=== PATIENT | female | born 1975 | race Caucasian/White ===

== ENCOUNTER 2021-06-09 13:03 | Emergency (ER) | payer OTHER, SELFPAY ==
[2021-06-09 13:19] VITALS: BP 143/67; PULSE 85; RESP 18; TEMP 37.2; O2SAT 100
--- NOTE | 2021-06-09 13:46 | ED.GENADULT ---
HPI - General Adult General Chief complaint: Upper Respiratory Infection Stated complaint: Sore Throat Source: patient Mode of arrival: ambulatory Limitations: no limitations History of Present Illness HPI narrative: Patient is a 46-year-old female presents to express care via POV for evaluation of a sore throat that began yesterday. Additionally, patient reports throat pain is intermittent and sore in nature. Unable to rate pain on numerical scale. No relief with advil. Cool drinks alleviate pain and pain worsens with swallow. Of note, pt is on morphine for chronic pain and throat pain is not alleviated with this medication either. She admits that she is a tobacco smoker. Related Data Home Medications Medication Instructions Recorded Confirmed lamotrigine 150 mg PO DAILY 06/09/21 06/09/21 levothyroxine 50 mcg PO DAILY 06/09/21 06/09/21 lisdexamfetamine [Vyvanse] 40 mg PO DAILY 06/09/21 06/09/21 morphine 60 mg PO DAILY 06/09/21 06/09/21 progesterone micronized 200 mg PO DAILY 06/09/21 06/09/21 tapentadol [Nucynta] 50 mg PO DAILY 06/09/21 06/09/21 thyroid (pork) [[place] Thyroid] 120 mg PO DAILY 06/09/21 06/09/21 Allergies Allergy/AdvReac Type Severity Reaction Status Date / Time No Known Allergies Allergy Verified 06/09/21 14:47 Review of Systems Review of Systems: Narrative: Denies history of COPD, bronchitis, asthma, and pneumonia. Denies fever, sweats, chills, change in appetite, fatigue, skin color changes, headache, nasal congestion/discharge, dizziness, lymphadenopathy, sinus problems, ear pain/drainage, chest pain, heart murmurs, heart palpitations, shortness of breath, wheezing, cyanosis, hemoptysis, hoarseness, orthopnea, pleuritic pain, nausea, vomiting, diarrhea, and myalgias. [facility] Past Medical History Medical History Anxiety Chronic pain Depression Hypothyroidism MTHFR (methylene THF reductase) deficiency and homocystinuria Social History Social History Gender identity (if verbalized by the patient): Female Comments I have reviewed and agree with the patient's past medical, surgical, social, and family hx as documented by the RN. There is no relevant family history pertinent to the presenting complaint. Exam Narrative: Exam Narrative: GENERAL: Well-appearing, well-nourished, and in no acute distress. HEAD: Normocephalic, atraumatic. No sinus tenderness or facial swelling appreciated. EYES: PERRLA and EOMI. No evidence of erythema, swelling, or drainage. ENT: Bilateral external ears and ear canals normal. Bilateral TMs are normal.No TM perforation. Nares clear, no rhinorrhea or epistaxis. Bilateral turbinates without erythema/ swelling. Mucous membranes moist and pink. Uvula is midline without erythema and swelling. MILD ERYTHEMA IS NOTED TO POSTERIOR PHARYNX. No evidence of petechial rash, cobblestoning, lesions, ulcers, erythema, exudates, peritonsillar abscess, tenting, or drooling. Breath odor and voice normal. NECK: Supple. No Lymphadenopathy or nuchal rigidity appreciated. CHEST: Bilateral lung terrell are clear to auscultation. No respiratory distress. No evidence of cough or pleuritic cp upon examination. HEART: Regular rate and rhythm. No murmur, gallop, or rub heard. EXTREMITIES: Normal range of motion. No edema. SKIN: Warm, dry, no rash. NEURO: No focal deficits. Alert and oriented x3. Course Vital Signs Vital signs: Vital Signs Temperature 98.9 F 06/09/21 13:19 Pulse Rate 85 06/09/21 13:19 Respiratory Rate 18 06/09/21 13:19 Blood Pressure 143/67 H 06/09/21 13:19 Pulse Oximetry 100 06/09/21 13:19 Temperature 98.9 F 06/09/21 13:19 Pulse Rate 85 06/09/21 13:19 Respiratory Rate 18 06/09/21 13:19 Blood Pressure 143/67 H 06/09/21 13:19 Pulse Oximetry 100 06/09/21 13:19 Reviewed. Due to an elevated blood pressure, I had a
== END 2021-06-09 13:58 | disposition home or self-care (01) ==
PROVIDERS: Emergency Provider Nurse Practitioner Family
DX: J02.9 Acute pharyngitis, unspecified (principal); E03.9 Hypothyroidism, unspecified; E72.12 Methylenetetrahydrofolate reductase deficiency; F32.9 Major depressive disorder, single episode, unspecified
CPT/HCPCS: 87081; 87880; 99213; G0463

== ENCOUNTER 2022-11-22 00:49 | Day surgery (SDC) | payer OTHER, SELFPAY ==
[2022-11-07 18:36] VITALS: BMI 25.7
--- NOTE | 2022-11-07 18:42 | SUR.PREOP ---
Report to the Outpatient Waiting Room, entrance under the green pavilion located off [facility], at time _0600 on date _11/22/22 . Planned Procedure Time: __30 . Time changes happen often and if your time is changed the preop area will call you the afternoon before. - You and your visitor will be asked to self-screen and do not enter if you have any COVID symptoms. - Only one visitor is requested with a max of two and NO children visitors are allowed at this time. - The patient visitor may be requested to leave or wait in car when not with patient due to distancing restrictions. - A mask is optional within the hospital. Patients may have clear liquids (water, carbonated beverages, clear teas, apple juice) until 3 hours prior to surgery with a maximum of 20 ounces. - No food from midnight until time of surgery - Infants may have breast milk until 4 hours before surgery, formula 6 hours prior to surgery. - Children will be allowed to drink immediately following surgery. If applicable, please bring a bottle or sippy cup to assist with drinking. Juice, water, soda, and popsicles are readily available. For infants on formula, please bring formula the day of surgery. Pacifiers are allowed. Take the following medications with a SIP of water the morning of surgery: _hysingla,lamotrigine,levothyroxine,armour thyroid Medications to discontinue per physician n/a Date to take last dose__n/a Please no make-up, nail palestinian, hairspray, perfume, deodorant, or body powder the day of surgery. No jewelry (including any body piercings) or valuables the day of surgery, leave them at home. Please take a shower or bath the night before, or the morning of, surgery with an antibacterial soap. Wear comfortable, loose fitting clothing. Children are encouraged to wear pajamas. - Jewelry must be removed prior to entering the operating room. Rings and piercings that are not removed may be cut off. - The hospital will not accept responsibility for valuables. - Please leave all valuables, including medications, at home the day of surgery. If you are going home after surgery, a licensed contract driver must drive you home. - NO public transportation without another adult if you receive anesthesia. - We recommend that an adult stay with you for 24 hours following discharge. - We also recommend that you do not drive, make important decision, drink alcoholic beverages, or take any drugs that were not prescribed by your health care provider for at least 24 hours after your discharge time. For Pediatric surgeries, we recommend two adults accompany the child home. Follow any additional instructions given to you from your surgeon. If you or anyone in your household have experienced Covid symptoms in the past week, please notify your surgeon or the nurse liaison at the phone number below for possible testing. Telephone instructions given to _storm cote and asked if any additional questions and then verbalized understanding. Patient advised to call surgeon office or pre surgery nurse liaison [phone] if any additional questions.
--- NOTE | 2022-11-21 17:42 | WPDANESEPP ---
Anes - Eval Pre Procedure Procedure: Operation Date: 11/22/22 07:30 Proposed Procedures p Hysteroscopy, Dilation and Curettage - Linda Marcano MD Date/Time: 11/21/22 17:42 Pre Op Diagnosis: post menopausal bleeding Patient Data Age: 47 Gender: F Height: 1.63 m Weight: 68.18 kg Allergies Allergy/AdvReac Type Severity Reaction Status Date / Time No Known Allergies Allergy Verified 11/07/22 18:18 Home Medications Medication Instructions Recorded Confirmed Type lamotrigine 150 mg tablet 150 mg PO BID 06/09/21 11/07/22 History levothyroxine 50 mcg tablet 50 mcg PO DAILY 06/09/21 11/07/22 History lisdexamfetamine 40 mg capsule 40 mg PO DAILY 06/09/21 11/07/22 History (Vyvanse) progesterone micronized 200 mg 200 mg PO DAILY 06/09/21 11/07/22 History capsule thyroid (pork) 120 mg tablet 120 mg PO DAILY 06/09/21 11/07/22 History ([place] Thyroid) hydrocodone bitartrate 60 mg 60 mg PO DAILY 11/07/22 11/07/22 History tablet,crush resist,extended rel. 24hr (Hysingla ER) Patient hx anesthesia problems: none Family hx anesthesia problems: none Results Review: All pre-operative results and documents have been reviewed as part of the pre-operative evaluation. [facility] Past Medical History Medical History Anxiety Chronic pain Depression Hypothyroidism MTHFR (methylene THF reductase) deficiency and homocystinuria Social History Social History Smoking status: Former smoker Tobacco type: cigarettes and e-cigarettes/vaping Smoking end date: 11/27/15 Additional smoking assessment comments: cigarettes 1/2ppd [id number] Living arrangements: with family Gender identity (if verbalized by the patient): Female Spiritual care concerns: No Exam Day of Procedure 11/21/22 17:42
[2022-11-22] MEDS: ACETAMINOPHEN 500 MG TABLET 1000 MG PO (06:40)
[2022-11-22] MEDS: LACTATED RINGERS 1,000 ML 30 ML IV CONT (06:45)
--- NOTE | 2022-11-22 06:47 | WPDANESEPPF ---
Anes - Initial Pre Proc Eval Procedure: Operation Date: 11/22/22 07:30 Proposed Procedures p Hysteroscopy, Dilation and Curettage - Linda Marcano MD Date/Time: 11/22/22 06:47 Surgeon: Linda Marcano MD Pre Op Diagnosis: post menopausal bleeding Patient Data Age: 47 Gender: F Height: 1.63 m Weight: 68.18 kg Allergies Allergy/AdvReac Type Severity Reaction Status Date / Time No Known Allergies Allergy Verified 11/22/22 06:27 Home Medications Medication Instructions Recorded Confirmed Type lamotrigine 150 mg tablet 150 mg PO BID 06/09/21 11/07/22 History levothyroxine 50 mcg tablet 50 mcg PO DAILY 06/09/21 11/07/22 History lisdexamfetamine 40 mg capsule 40 mg PO DAILY 06/09/21 11/07/22 History (Vyvanse) progesterone micronized 200 mg 200 mg PO DAILY 06/09/21 11/07/22 History capsule thyroid (pork) 120 mg tablet 120 mg PO DAILY 06/09/21 11/07/22 History ([place] Thyroid) hydrocodone bitartrate 60 mg 60 mg PO DAILY 11/07/22 11/07/22 History tablet,crush resist,extended rel. 24hr (Hysingla ER) Patient hx anesthesia problems: none Family hx anesthesia problems: none Results Review: All pre-operative results and documents have been reviewed as part of the pre-operative evaluation. [facility] Past Medical History Medical History Anxiety Chronic pain Depression Hypothyroidism MTHFR (methylene THF reductase) deficiency and homocystinuria Social History Social History Smoking status: Former smoker Tobacco type: cigarettes and e-cigarettes/vaping Smoking end date: 11/27/15 Additional smoking assessment comments: cigarettes 1/2ppd [id number] Living arrangements: with family Gender identity (if verbalized by the patient): Female Spiritual care concerns: No Anes - Eval Final PreProcedure Day of Procedure 11/22/22 06:47 Patient weight: overweight Heart: regular rate and rhythm Lungs: clear to auscultation Airway: Mallampati scale class II Neurological: alert and oriented Last oral intake: >/= 8 hours ASA classification: III Emergent: no Anesthetic plan: proceed Anesthesia type and monitoring: general GIVS and standard monitoring Results Review: All pre-operative results and documents have been reviewed as part of the pre-operative evaluation. Informed Consent: The patient's anesthetic plan and its attendant risks and benefits were discussed with the patient/family/POA. Questions were solicited and answers provided to the satisfaction of the patient/family/POA.
[2022-11-22 07:08] VITALS: BP 150/81; PULSE 88; RESP 16; TEMP 37.3; O2SAT 98
--- NOTE | 2022-11-22 07:24 | PM.IMHP ---
H&P: HPI History of Present Illness Date/Time: 11/22/22 07:24 Chief Complaint: Postmenopausal bleeding Narrative: this patient is a 47-year-old female with postmenopausal bleeding who presents to the hospital for hysteroscopy D&C. We have a grade to evaluate endometrium in the hospital. She was very sensitive to Pap smear. She understands there is risk. She understands that injuries may occur that resulted in hospitalization, more surgery, and severe illness. She understands there is a risk of hemorrhage and infection. Review of Systems Review of Systems: All systems reviewed & are unremarkable except as noted in HPI and below Constitutional: Constitutional: Denies chills, Denies fatigue, Denies fever(s) and Denies weakness Eyes: Eyes: Denies blurry vision, Denies change in vision, Denies loss of peripheral vision, Denies loss of vision, Denies other visual disturbances and Denies eye pain ENT: Denies vertigo, Denies dizziness, Denies hearing loss, Denies mouth pain, Denies nasal obstruction, Denies neck mass and Denies neck pain Cardiovascular: Cardiovascular: Denies chest pain, Denies diaphoresis, Denies syncope, Denies leg edema and Denies dyspnea Respiratory: Respiratory: Denies chest congestion, Denies cough, Denies hemoptysis, Denies dyspnea and Denies wheezing Gastrointestinal: Gastrointestinal: Denies abdominal pain, Denies constipation, Denies diarrhea, Denies nausea and Denies vomiting Genitourinary: Genitourinary: Denies hematuria, Denies change in libido, Denies nocturia, Denies genital lesions, Denies flank pain and Denies urinary urgency Musculoskeletal: Musculoskeletal: Denies abnormal gait, Denies back pain, Denies myalgias, Denies arthralgias, Denies joint swelling, Denies muscle weakness and Denies neck pain Integumentary/Breasts: Skin/Breast: Denies swelling, Denies breast pain, Denies breast mass, Denies dry skin, Denies nipple discharge, Denies unusual bruising and Denies jaundice Neurologic: Denies Neuro-related abnormal movements, Denies Abnormal speech present, Denies abnormal gait, Denies behavioral changes, Denies confusion, Denies vertigo, Denies dizziness, Denies syncope, Denies loss of vision, Denies memory loss, Denies convulsions and Denies weakness Psychiatric: Psychiatric: Denies abnormal sleep pattern, Denies behavioral changes, Denies change in libido, Denies confusion, Denies depression, Denies anhedonia and Denies memory loss Endocrine: Endocrine: Reports no additional endocrine complaints, Denies change in libido and Denies fatigue Hematologic/Lymphatic: Hematologic/Lymphatic: Reports no additional hematologic/lymphatic complaints Allergic/Immunologic: Allergic/Immunologic: Reports no additional allergic/immunologic complaints and Denies wheezing PMFSH Past Medical History Medical History (Updated 11/22/22 @ 07:25 by Linda Marcano MD) Anxiety Chronic pain Depression Hypothyroidism MTHFR (methylene THF reductase) deficiency and homocystinuria PTSD (post-traumatic stress disorder) Social History Social History Smoking status: Former smoker Tobacco type: cigarettes and e-cigarettes/vaping Smoking end date: 11/27/15 Additional smoking assessment comments: cigarettes 1/2ppd [id number] Living arrangements: with family Gender identity (if verbalized by the patient): Female Spiritual care concerns: No Meds Home Medications and Allergies Home Medications Medication Instructions Recorded Confirmed Type lamotrigine 150 mg tablet 150 mg PO BID 06/09/21 11/22/22 History levothyroxine 50 mcg tablet 50 mcg PO DAILY 06/09/21 11/22/22 History lisdexamfetamine 40 mg capsule 40 mg PO DAILY 06/09/21 11/22/22 History (Vyvanse) progesterone micronized 200 mg 200 mg PO DAILY 06/09/21 11/22/22 History capsule thyroid (pork) 120 mg tablet 120 mg PO DAILY 06/09/21 11/22/22 History ([place] Thyroid) hydrocodone b
--- NOTE | 2022-11-22 07:36 | WPDHPUPDATE1 ---
History and Physical Update Update Date/Time: 11/22/22 07:36 History and Physical has been reviewed, including an updated exam of the patient. There are NO changes in the patient's condition. Risks, benefits, and alternatives have been discussed and questions answered. Patient agrees to proceed with procedure.
[2022-11-22] MEDS: FERRIC SUBSULFATE 8 ML SOLUTION WITH APPLICATOR TOPICAL (08:14)
[2022-11-22] MEDS: LIDOCAINE HCL 1% PF 30 ML VIAL 10 ML INFILTRATE (08:14)
[2022-11-22 08:20] VITALS: BP 125/55; PULSE 80; RESP 16; O2SAT 100
[2022-11-22 08:45] VITALS: BP 136/79; PULSE 71; RESP 16
--- NOTE | 2022-11-22 08:56 | P.OP_ITS ---
Procedure Note - Detailed Date of Procedure 11/22/22 Pre-op Diagnosis post menopausal bleeding Post-op Diagnosis Same (Cervical mass) Procedure Performed hysteroscopy D and C with biopsy the cervix Surgeon Linda Marcano MD Anesthesia MAC Indications abnormal uterine bleeding Findings normal-appearing intrauterine cavity a vagina. The cervix had a firm circular mass at the anterior lip at the transition zone. It was biopsy. Description of Procedure the patient was taken the operating room. She was prepped and draped in the dorsal lithotomy position after induction of mac anesthesia. A speculum was nelson chance in the vagina. The cervix was grasped with a tenaculum. The cervix was dilated about 1 cm. The hysteroscope was inserted. The intrauterine cavity and endocervix were evaluated. Hysteroscope was withdrawn. A medium-size curette was used to curettage all the surfaces were within the endometrial cavity. the sample was collected on Telfa and sent to pathology. The hysteroscope was reinserted and the above findings were noted. Biopsy the cervix at the mass was performed. It was done with Tischler biopsy forceps. It was made hemostatic with Monsel's solution. Patient tolerated the procedure well. The speculum and tenaculum were removed. She was taken recovery room in stable condition. Sponge lap and needle counts were correct x2. Estimated Blood Loss -10.0 Drains No Packing No Pathology Yes Complications No immediate complications Condition Stable Disposition PACU
[2022-11-22 09:15] VITALS: BP 130/68; PULSE 66; RESP 16
== END 2022-11-22 09:26 | disposition home or self-care (01) ==
PROVIDERS: Visit Provider Obstetrics & Gynecology
PROC: 0U5B8ZZ Destruction of Endometrium, Via Natural or Artificial Opening Endoscopic (ICD-10-PCS; CPT 58563; principal; 2022-11-22 07:30)
DX: N95.0 Postmenopausal bleeding (principal); N72 Inflammatory disease of cervix uteri; E72.12 Methylenetetrahydrofolate reductase deficiency; E03.9 Hypothyroidism, unspecified; G89.29 Other chronic pain; F41.9 Anxiety disorder, unspecified; F32.A Depression, unspecified; Z87.891 Personal history of nicotine dependence
CPT/HCPCS: 58558; 57500; 88305; A9270; J2250; J2405; J2704; J3010; J7030; J7120

== ENCOUNTER 2023-09-20 11:21 | Emergency (ER) | payer OTHER, SELFPAY ==
--- NOTE | ~2023-09-20 | XR_ITS ---
XR chest 2V 09/20/2023 12:00 Indication: Cough. Procedure: 2 view chest Comparison: No prior studies for comparison. Findings: Patchy bilateral airspace disease, compatible with pneumonia. Heart size normal. No pleural effusion. No pneumothorax. Impression: 1: Patchy bilateral airspace disease, compatible with pneumonia. Reviewed, dictated and finalized at location B. Impression: 1: Patchy bilateral airspace disease, compatible with pneumonia.
[2023-09-20 11:31] VITALS: BP 163/83; PULSE 89; RESP 12; TEMP 37.1; O2SAT 98
--- NOTE | 2023-09-20 11:42 | ED.URI ---
HPI - URI/Sore Throat General Chief Complaint: Upper Respiratory Infection Stated Complaint: Chest Pain,Headache Time Seen by Provider: 09/20/23 11:42 Source: patient Mode of arrival: ambulatory Limitations: no limitations History of Present Illness HPI Narrative: 48-year-old female presents with complaint nasal congestion, postnasal drainage, cough for 4-5 days. Afebrile. Started feeling chest pain and shortness of breath yesterday. Went to [facility] today and they prescribed prednisone, doxycycline, albuterol inhaler and Tessalon Perle. Was not able to do a chest x-ray. Went home after picking up prescriptions and continue to have chest pain so came [facility] for 2[facility] opinion. No respiratory distress noted. All systems reviewed and negative except as noted above. Related Data Home Medications Medication Instructions Recorded Confirmed lamotrigine 150 mg tablet 150 mg PO BID 06/09/21 09/20/23 morphine 30 mg tablet,extended 30 mg PO DAILY 09/20/23 09/20/23 release Allergies Allergy/AdvReac Type Severity Reaction Status Date / Time No Known Allergies Allergy Verified 09/20/23 11:26 Review of Systems Review of Systems: CONSTITUTIONAL: Denies fever, chills, or sweats. EYES: Denies visual changes, redness, or discharge. ENT: Reports rhinorrhea, congestion. Denies sore throat, or otalgia. CARDIOVASCULAR: Denies chest pain, palpitations, or edema. RESPIRATORY: reports cough, chest tightness and dyspnea with exertion. GASTROINTESTINAL: Denies abdominal pain, nausea, vomiting, or diarrhea. GENITOURINARY: Denies dysuria or hematuria. SKIN: Denies rash or itching. MUSCULOSKELETAL: Denies back pain, joint pain, or myalgia. NEUROLOGIC: Denies headache, numbness, or weakness. PSYCHIATRIC: Denies anxiety or depression. All other systems reviewed are negative, except as documented in HPI. [facility] Past Medical History Medical History (Updated 09/20/23 @ 12:36 by Petra Waters NP) Anxiety Chronic pain Depression Hypothyroidism MTHFR (methylene THF reductase) deficiency and homocystinuria PTSD (post-traumatic stress disorder) Social History Social History Smoking status: Former smoker Tobacco type: cigarettes and e-cigarettes/vaping Smoking end date: 11/27/15 Additional smoking assessment comments: cigarettes 1/2ppd [id number] Living arrangements: with family Gender identity (if verbalized by the patient): Female Spiritual care concerns: No Comments At time of signature, agree with nursing past medical, surgical, social and family history. There is no relevant family history pertinent to the presenting complaint. Exam Narrative: GENERAL: This is a well-nourished, well-developed patient, in no apparent distress. HEAD: normocephalic, atraumatic. EYES: PERRL. Sclera clear/white. Vision is grossly intact. EARS: External ears normal, auditory canals clear and without drainage, TMs normal without perforation. Hearing grossly intact. NOSE: External nose normal with clear nasal drainage, mild congestion, erythema to bilateral nares. THROAT: Mucous membranes moist, posterior pharynx clear. NECK: Neck supple, non-tender without lymphadenopathy, masses or thyromegaly. CARDIOVASCULAR: Regular rate and rhythm without murmurs, gallops, or rubs. RESPIRATORY: Coarse lung sounds to left lung terrell. Breath sounds equal bilaterally. No wheezes, rales, or rhonchi. SKIN: warm, Dry, intact with no suspicious lesions or rash, good texture and turgor. NEURO: awake, alert, and oriented to person, place and time. There were no obvious focal neurologic abnormalities. EXTREMITIES: No joint tenderness, effusion, or edema noted. Course Course Level of Care: Express Care Visit Reevaluation(s) Reevaluation #1: lungs clear to auscultation after DuoNeb. Patient reports chest tightness improved. Able to take deeper
--- NOTE | 2023-09-20 11:54 | ECG_ITS ---
Measurements Intervals [place] Rate: 99 P: 76 LA: 127 QRS: 57 QRSD: 90 T: 38 QT: 331 QTc: 426 Interpretive Statements SINUS RHYTHM NONSPECIFIC ST CHANGES NO PREVIOUS ECG AVAILABLE FOR COMPARISON Electronically Signed On 09-20-2023 20:23:31 CDT by Denia Muller M.D.
[2023-09-20] MEDS: ALBUTEROL SULFATE NEB 2.5 MG/3 ML INH INHALATION (12:04)
[2023-09-20 12:05] VITALS: PULSE 89; RESP 12; O2SAT 98
[2023-09-20] MEDS: IPRATROPIUM BR 0.02% INH SOLN 0.5 MG/2.5 ML VIAL INHALATION (12:05)
[2023-09-20 12:27] VITALS: BP 134/67; PULSE 90; RESP 12; O2SAT 100
[2023-09-20 12:35] VITALS: PULSE 92; RESP 16; O2SAT 99
== END 2023-09-20 12:38 | disposition home or self-care (01) ==
PROVIDERS: Emergency Provider Nurse Practitioner Family
DX: J18.9 Pneumonia, unspecified organism (principal); E03.9 Hypothyroidism, unspecified; E72.12 Methylenetetrahydrofolate reductase deficiency; F32.A Depression, unspecified
CPT/HCPCS: 71046; 93005; 99213; G0463

== ENCOUNTER 2023-12-01 12:39 | Emergency (ER) | payer OTHER, SELFPAY ==
[2023-12-01 12:50] VITALS: BP 140/68; PULSE 90; RESP 18; TEMP 36.7; O2SAT 98
--- NOTE | 2023-12-01 13:48 | ED.URI ---
HPI - URI/Sore Throat General Chief Complaint: Upper Respiratory Infection Stated Complaint: Sore Throat History of Present Illness HPI Narrative: 48-year-old female presented for complaint of sore throat for few days. She endorses headache and nasal congestion with a temp up to 100. Tested negative for COVID at home. Endorses sick contacts. She denies shortness breath, wheeze diarrhea, difficulty maintaining secretions, lethargy. Related Data Home Medications Medication Instructions Recorded Confirmed lamotrigine 150 mg tablet 150 mg PO BID 06/09/21 09/20/23 buprenorphine HCl 150 mcg buccal mcg buccal 12/01/23 12/01/23 film ([place]) dextroamphetamine-amphetamine ER PO 12/01/23 50 mg capsule,3 bead,ext release 24hr levothyroxine 12/01/23 naproxen 500 mg tablet mg 12/01/23 Allergies Allergy/AdvReac Type Severity Reaction Status Date / Time No Known Allergies Allergy Verified 12/01/23 12:48 Review of Systems Review of Systems: ROS per HPI FOR[facility]LY [facility] Past Medical History Medical History Anxiety Chronic pain Depression Hypothyroidism MTHFR (methylene THF reductase) deficiency and homocystinuria PTSD (post-traumatic stress disorder) Social History Social History Smoking status: Former smoker Tobacco type: cigarettes and e-cigarettes/vaping Smoking end date: 11/27/15 Additional smoking assessment comments: cigarettes 1/2ppd [id number] Living arrangements: with family Gender identity (if verbalized by the patient): Female Spiritual care concerns: No Exam Narrative: GENERAL: mildly Ill-appearing, no acute distress. EYES: conjunctivae clear ENT: Mucous membranes moist. TM pearly garrett with normal light reflex bilaterally; no tragal tenderness. Oropharynx erythematous Tonsils enlarged 2+ and without exudate. No drooling, no hoarseness, no trismus, uvula midline. No tripod positioning, hot potato voice, or soft palate swelling. NECK: Supple. No lymphadenopathy CHEST: Clear to auscultation, breath sounds equal. No respiratory distress, speaks in full sentences. HEART: Regular rate and rhythm. No murmur heard. SKIN: Warm, dry, no rash. NEURO: Alert and oriented x3. Course Course Emergency Course: Patient is aware of diagnosis, understands and agrees to treatment plan. Anticipatory guidance given. Patient agrees to follow-up as directed and is aware of reasons to seek care at the emergency department. Portions of this record may have been created with voice recognition software Level of Care: Express Care Visit Vital Signs Vital signs: Vital Signs Temperature 98.1 F 12/01/23 12:50 Pulse Rate 90 12/01/23 12:50 Respiratory Rate 18 12/01/23 12:50 Blood Pressure 140/68 12/01/23 12:50 Pulse Oximetry 98 12/01/23 12:50 Oxygen Delivery Room Air 12/01/23 12:50 Temperature 98.1 F 12/01/23 12:50 Pulse Rate 90 12/01/23 12:50 Respiratory Rate 18 12/01/23 12:50 Blood Pressure 140/68 12/01/23 12:50 Pulse Oximetry 98 12/01/23 12:50 Oxygen Delivery Room Air 12/01/23 12:50 MDM - URI/Sore Throat MDM Narrative Medical decision making narrative: strep result reviewed with pt. Advise supportive treatments. Patient is appropriate for outpatient treatment and follow-up. Differential Diagnosis Differential diagnosis: Likely upper respiratory infection, viral infection and pharyngitis Lab Data Labs: Lab Results 12/01/23 Range/Units 12:59 POC SARS CoV-2 Ag Negative (Negative) Influenza A Screen Negative Reference Range: Negative Influenza B Screen Negative Reference Range: Negative Strep Screen Positive Group A Strep *(Reference Ra
== END 2023-12-01 14:05 | disposition home or self-care (01) ==
PROVIDERS: Emergency Provider Nurse Practitioner Family; PCP Chiropractor
DX: J02.0 Streptococcal pharyngitis (principal); E03.9 Hypothyroidism, unspecified; Z79.899 Other long term (current) drug therapy; Z87.891 Personal history of nicotine dependence; Z20.822 Contact with and (suspected) exposure to COVID-19
CPT/HCPCS: 87426; 87804; 87880; 99213; C9803; G0463

== ENCOUNTER 2025-03-11 16:43 | Emergency (ER) | payer OTHER, SELFPAY ==
--- NOTE | ~2025-03-11 | XR_ITS ---
XR foot LT min 3V Ordering provider: Scar Delacruz APRN History: . left foot pain x2 weeks,distal 4 5th metatarsals . Comparison: None. FINDINGS: BONES: No acute fracture or dislocation. JOINT SPACES: Normal. No tarsal coalition. SOFT TISSUES: Normal. IMPRESSION: No acute osseous abnormality left foot. Reviewed, dictated and finalized at location [facility].
[2025-03-11 16:51] VITALS: BP 153/84; PULSE 97; RESP 18; TEMP 36.5; O2SAT 100
--- OUTSIDE RECORDS SUMMARY | 2025-03-11 17:00 | XMS_ITS | Clinical Summary ---
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 Sex Female 8:12 PM CDT Gender Identity Not on file Sexual Orientation Not on file Plan of Treatment Health Maintenance Due Date Last Done Comments Cervical Cancer Screening Pa p Smear (Age 30 to 64) Every 3 Years 1973 Colorectal Cancer Screening Colonoscopy (10 Years) 1973 Annual Physical 1976 Hepatitis C 1991 DTaP, Tdap and Td Vaccines ( 1 - Tdap) 1992 Hepatitis B Vaccines (1 of 3 - 19+ 3-dose series) 1992 Cervical Cancer Screening Pa p with HPV Testing (Age 30 to 64) Every 5 Years 2003 Cervical Cancer Screening with HPV 2003 Mammogram Screening 2013 Zoster Vaccines (1 of 2) 2023 COVID-19 Vaccine ( - 2023-2 5 season) 2024 Meningococcal B Vaccine Aged Out No l onger eligible based on patient's age to complete this topic Meningococcal Vaccine Aged Out No jarrod nighat eligible based on patient's age to complete this topic Pneumococcal Vaccine: Pediat rics (0 to 5 Years) and At-Risk Patients (6 to 49 Years) Aged Out No longer eligible b ased on patient's age to complete this topic RSV Immunizations Under 20 Months Aged Out No longer eligible based on patient's age to complete this topic
--- OUTSIDE RECORDS SUMMARY | 2025-03-11 17:00 | XMS_ITS | Encounter Summary ---
Author Organization 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
--- OUTSIDE RECORDS SUMMARY | 2025-03-11 17:00 | XMS_ITS | Data Portability ---
Author Organization [facility] [place] Address [address] [address] [address] [place] [address] Assessment No assessment recorded. Plan of Treatment Reminders Order Date Submit Date Provider Last Modified By Organization Details Last Modified Time Details Appointments None recorded. Lab None recorded. Referral None recorded. Procedures None recorded. Surgeries None recorded. Imaging US, pelvis 2021 022 [address], [address], [place], [address], 17:28:44 US, transvagina l [address] [facility] [address], [address], [place], [address], 17:28:44 Medication Orders None recorded. Patient TargetsNo targets recorded. Patient InstructionsNo instructions recorded. Reason for Referral None Reported. Results Created Date Observation Date Name Description Value Unit Range Abnormal Flag Note LastModifiedBy Organization Detail LastModifiedTime 08/02/20 22 08/02/2022 DHEA SULFA TE DHEA-sulfate 70 ug/dL Femal e Range s Age(y ) Range (ug/d L) 10-15 34-28 0 15-20 65-36 8 20-25 148-4 07 25-35 99-34 0 35-45 61-33 7 45-55 35-25 6 55-65 19-20 5 65-75 9-246 > 75 12-15 4 Not Available [facility] [address] [place], [address], 08/05/2022 23:08:49 08/02/20 22 08/02/2022 PROLA CTIN prolactin, total 16.90 NG/mL 4.79-2 3.30 This assay was perfo rmed using [employer] ratio n reage nts and test kits. Value s obtai birgit with other assay metho ds or kits canno t be used inter [facility] . Not Available [facility] [address] [place], [address], 08/05/2022 23:08:49 08/02/20 22 08/02/2022 FSH, LH, ESTRA DIOL estradiol 116.0 pg/mL This assay was perfo rmed using [employer] ratio n reage nts and test kits. Value s obtai birgit with other assay metho ds or kits canno t be used inter [facility] . Femal e Estra diol Range s: Folli cular phase 12.4- 233 pg/mL Ovula tion phase 41.0- 398 pg/mL Lutea l phase 22.3- 341 pg/mL Postm enopa usal< 5-138 pg/mL Healt hy Pregn ant Women 1st Trime ster1 54-32 43 pg/mL 2nd Trime ster1 561-2 1280 pg/mL 3rd Trime ster8 525-> 14855 pg/mL Not Available [facility] [address] [place], [address], 08/05/2022 23:08:50 08/02/20 22 08/02/2022 FSH, LH, ESTRA DIOL FSH 2.5 mIU/m L This assay was perfo rmed using [employer] ratio n reage nts and test kits. Value s obtai birgit with other assay metho ds or kits canno t be used inter [facility] . Femal es Folli cular : 3.5-1 2.5 mIU/m L Ovula tion: 4.7-2 1.5 mIU/m L Lutea l: 1.7-7 .7 mIU/m L Postm enopa use: 25.8- 134.8 mIU/m L Not Available [facility] [address] [place] [address], [address], 08/05/2022 23:08:50 08/02/20 22 08/02/2022 FSH, LH, ESTRA DIOL LH 1.8 mIU/m L This assay was perfo rmed using [employer] n reage nts and test kits. Value s obtai birgit with other assay metho ds or kits canno t be used [facility] . Femal es Mid-F ollic ular: 2.4-1 2.6 mIU/m L Mid-C ycle: 14.0- 95.6 mIU/m L Mid-L uteal : 1.0-1 1.4 mIU/m L Postm enopa use: 7.7-5 8.5 mIU/m L Not Available [facility] [address] [place] [address], [address], 08/05/2022 23:08:50 08/02/20 22 08/02/2022 T4 FREE T4, free 0.72 NG/dL 0.60-1 .40 Not Available [facility] [address] [place] [address], [address], 08/05/2022 23:08:50 08/02/20 22 08/02/2022 TSH, REFLE X FREE T4 TSH 5.76 uIU/m L 0.30-5 .33 high Not Available [facility] [address] [place] [address], [address], 08/05/2022 23:08:51 08/02/20 22 08/02/2022 HUMAN SEX HORMO NE YING NG GLOBU CARLOS sex hormone binding globulin 67.4 nmole s/L 16.8-1 25.2 Not Available [facility] [address] [place], [address], 08/05/2022 23:08:51 08/02/20 22 08/02/2022 PROGE STERO NE progesterone <0.05 NG/mL This assay was perfo rmed using [employer] n reage nts and test kits. Value s obtai birgit with other assay metho ds or kits canno t be used [facility] . Femal e Proge stero ne Range s: Folli cular phase 0.06- 0.89 ng/mL Ovula tion phase 0.12- 12.00 ng/mL Lutea l phase 1.83- 23.90 ng/mL Postm enopa usal< 0.05- 0.13 ng/mL Healt hy Pregn ant Women 1st Trime ster1 1.0-4 4.30 2nd Trime ster2 5.40- 83.30 3rd Trime ster5 8.70- 214.0 0 Not Available [facility] [address] [place], [address], 08/05/2022 23:08:51 08/02/20 22 08/02/2022 TESTO STERO NE, FREE( DIALY SIS) AND TOTAL (LC/M S/MS) testosterone , total 149 NG/dL 2-45 high For addit ional infor giuliano gutiérrez e refer to http: //[facility] earl n.que stdia gnost ics.c om/fa q/Tot alTes toste Librado [facility] (This link is being provi ded for infor chris nal/ educa doretha l purpo ses only. ) This test was devel oped and its cecilio tical perfo rmanc e christian cteri stics have been deter mined by [facility]. It has not been clear ed or appro letitia by the FDA. This assay has been valid ated pursu ant to the CLIA regul ation s and is used for clini vijay purpo ses. Not Available [facility] [address] [place], [address], 08/05/2022 23:08:52 08/02/20 22 08/02/2022 TESTO STERO NE, FREE( DIALY SIS) AND TOTAL (LC/M S/MS) testosterone , free 14.2 pg/mL 0.1-6. 4 high This test was devel oped and its cecilio tical perfo rmanc e christian cteri stics have been deter mined by [facility] [facility]. It has not been clear ed or appro letitia by the FDA. This assay has been valid ated pursu ant to the CLIA regul ation s and is used for clini vijay purpo ses. Perfo rming Organ izati on Infor matandres n: Site ID: [id number] Name: [facility]Jonny leticia Bledsoe cia Addre ss: [id number] [facility] [place] [address] Direc tor: Taisha roth M.D. Not Available [facility] [address] [place] [address], [address], 08/05/2022 23:08:52 08/02/20 22 08/02/2022 IMAGE GUIDE D PAP AND HPV REGAR DLESS image guided Pap, HPV regardless of Pap result SEE RESULT S BELOW CASE REPOR T: Cytol ogy Gynec ologi vijay Repor t Case: [id number] Autho rizin g Provi catherine: Jayla Mays, CASH APPLICATIONS SPECIALIST Colle cted: 08/02 1307 Order ing Locat ion: [place] [facility] Recei letitia: 08/03 0108 First Scree n: Yosef Joshi , CT Rescr een: Anurag Zuñiga ed, CT Speci men: Scree familia Pap - Image d, Cervi x STATE MENT OF ADEQU ACY: Satis facto ry for evalu ation Trans forma tion zone compo nent prese nt FINAL DIAGN OSIS: Negat anat for Intra epith elial Lesio n or Silas mays (NIL) . Elect samaria cronin catalino d by Anurag Zuñiga ed, CT on 2021 at 7:19 PM ----- ----- ----- ----- ----- ----- ----- ----- ----- ----- ----- ----- ----- ----- ----- ----- ----- ---- HPV RESUL TS: HPV mRNA E6/E7 : No HPV mRNA Detec kathryn NOTE: This high risk HPV mRNA assay detec ts fourt een high- risk HPV types (16, 18, 31, 33, 35, 39, 45, 51, 52, 56, 58, 59, 66, 68) witho ut diffe renti ation . COMME NT: Note: This speci men was revie wed by a Cytot echno logis t and/o r Patho logis t (as indic ated in this repor t) after evalu ation using the Thinp rep Imagi ng Syste m. CLINI VIJAY INFOR MATIO N: Menst rual Statu s: LMP (if appli cable ): Clini vijay Histo ry/Pr eviou s Pap: Type of Neopl jeff (if appli cable ): Signi fican t Clini vijay Findi ngs: Other Histo ry: Hormo bethany (if appli cable ): PAP EDUCA DORETHA L NOTE: The Pap Test is a scree familia test with an inher ent false negat anat rate. Liqui d-bas ed sampl ing may decre ase, but will not elimi rodrigue, false negat anat resul ts. A negat anat resul t does not precl ude the prese nce and/o r devel opmen t of disea se, since the prese nce of abnor mal cells in the sampl e depen ds on the locat ion of the lesio n and sampl ing techn ique. Uknal nued regul ar scree familia is the best metho d of cance r preve ntion . If repor kathryn cytol ogic findi ng do not corre late with physi vijay and/o r histo rical findi ngs, fur er inves tigat ion is recom shi d, as clini yonas juarez nted. Not Available [facility] [address], [place], [address], 08/07/2022 20:21:14 08/09/20 22 08/09/2022 US, pelvi s No observ ation record ed. [email or web address] [place] [address], [place], [address], 08/09/2022 12:48:37 08/09/20 22 08/09/2022 US, trans vagin al No observ ation record ed. [email or web address] [place] [address], [place], [address], 08/09/2022 12:48:48 08/09/20 22 08/09/2022 US, pelvi s No observ ation record ed. carolyne Rivers [address], [facility], [place], [address], 08/11/2022 14:03:38 Result Notes None recorded. Problems Name Problem SNOMED Code Status Onset Date Resolution Date Notes Provider Name and Address Organization Details Recorded Time Polyhydra mnios with problem 528939418 Active 2010 Polyhydram nios, antepartum complicati on;Practic e ID: 0001 Not Available [facility] 0 21:40:26 Breast lump 83635877 Active 2011 Lump or mass in breast;Pra ctice ID: 0001 Not Available [facility] 0 21:40:26 Ill-defin ed intestina l infection Active 2011 No Show Fee;Practi ce ID: 0001 Not Available [facility] 0 21:40:26 Dysmenorr hea 277199224 Active 2012 Dysmenorrh ea;Practic e ID: 0001 Not Available [facility] 0 21:40:26 Premenstr ual tension syndrome 55815555 Active 2012 Premenstru al tension syndromes; Practice ID: 0001 Not Available [facility] 0 21:40:26 Irregular intermens trual bleeding 25748229 Active 2012 Metrorrhag ia;Practic e ID: 0001 Not Available [facility] 0 21:40:26 Dysfuncti onal uterine bleeding Active 2013 DUB;Record ed Elsewhere: No Locatio n: [facility] Ana Cristina rce: EHR Chroni c: N Practice ID: 0001 Billa ble Time: 10:45:00 AM Not Available [facility] 0 21:40:27 Primigrav noris 740419341 Active 2010 Supervisio n of normal first ; Practice ID: 0001 Not Available [facility] 0 21:40:28 Problem Notes None recorded. Procedures Surgical History Date Name Laterality Status Provider Name and Address Organization Details Recorded Time 11/22/20 22 DILATION AND CURETTAGE WITH HYSTEROSCOPY (SURG) completed Eloise Sanchez [facility] 11/24/2022 13:26:03 08/02/20 22 Date of Last Pap Smear completed Janessa Bolanos [facility] 08/24/2022 11:05:56 Imaging Results Imaging Date Name Status LastModified by Organization Details LastModified Time 08/09/2022 US, pelvis completed [email or web address] [place] [address], [place], [address], 08/09/2022 12:48:37 08/09/2022 US[facility]aginal [email or web address] [address], [place], [address], 08/09/2022 12:48:48 08/09/2022 US, pelvis completed carolyne Rivers [address], [place], [address], 08/11/2022 14:03:38 Procedure Notes None recorded. Medical Equipment None Reported. Allergies No known drug allergies Medications Name Sig Start Date Stop Date Status Note LastModified by Organization Details LastModified Time lamotrigi ne 150 mg tablet active Not Available Not Available Not Available atorvasta tin 10 mg tablet take 1 tablet by oral route every day 06/01 completed Prescrib ed Elsewher e: Yes Loca tion: Yakov flores [facility] odify By: suzette hanks DateTime : 11/12/20 14 10:45:00 AM Not Available Not Available Not Available citalopra m 10 mg/5 mL oral solution take 10 millilit er by oral route every day 06/01 completed Prescrib ed Elsewher e: Yes Loca tion: Yakov flores [facility] odify By: suzette peñauntyeimy DateTime : 11/12/20 14 10:45:00 AM Not Available Not Available Not Available Zithromax Z-Chapin 250 mg tablet take 2 tablet by oral route every day for 1 day then 1 tablet (250 mg) by oral route once daily for 4 days 12/12 completed Prescrib ed Elsewher e: No Locat ion: Yakov flores [facility] odify By: crdical Encount er DateTime : 12/08/19 15 09:38:27 AM Not Available Not Available Not Available allopurin ol 100 mg tablet take 1 tablet by oral route 3 times every day 06/01 completed Prescrib ed Elsewher e: Yes Loca tion: Yakov flores [facility] odify By: suzette hanks DateTime : 11/12/20 14 10:45:00 AM Not Available Not Available Not Available hydrocodo ne 10 mg-acetam inophen 325 mg tablet active Not Available Not Available Not Available potassium 99 mg tablet 08/02 completed Prescrib ed Elsewher e: Yes Loca tion: Yakov flores [facility] odify By: suzette hanks DateTime : 06/01/20 15 03:30:00 PM Not Available Not Available Not Available Metrogel Vaginal 0.75 % (37.5 mg/5 gram) insert 1 applicat orful by vaginal route every day at bedtime for 5 nights 11/24 completed Prescrib ed Elsewher e: No Locat ion: Yakov flores [facility] odify By: suzette hanks DateTime : 11/17/20 14 11:14:28 AM Not Available Not Available Not Available amitripty line 10 mg tablet take 1 tablet by oral route 3 times every day 06/01 completed Prescrib ed Elsewher e: Yes Loca tion: Yakov flores [facility] odify By: suzette peñauntyeimy DateTime : 11/12/20 14 10:45:00 AM Not Available Not Available Not Available progester one micronize d 200 mg capsule Take 1 capsule every day by oral route for 30 days. 2021 active Not Available Not Available Not Avai lable Synthroid 50 mcg tablet take 1 tablet (50MCG) by oral route every day 11/12 completed Prescrib ed Elsewher e: No Locat ion: Yakov flores [facility] odify By: syeda peñauntyeimy DateTime : 09/30/20 13 02:00:43 PM Not Available Not Available Not Available irbesarta n 75 mg tablet take 1 tablet by oral route every day 06/01 completed Prescrib ed Elsewher e: Yes Loca tion: Yakov flores [facility] odify By: suzette pñeauntyeimy DateTime : 11/12/20 14 10:45:00 AM Not Available Not Available Not Available cyanocoba lashell (vitamin B-12) (bulk) powder 06/01 completed Prescrib ed Elsewher e: Yes Loca tion: Yakov flores [facility] odify By: suzette peñauntyeimy DateTime : 11/12/20 14 10:45:00 AM Not Available Not Available Not Available Synthroid 112 mcg tablet take 1 tablet by oral route every day 08/02 completed Prescrib ed Elsewher e: No Locat ion: Yakov flores [facility] odify By: trenton davies DateTime : 12/02/19 15 01:00:00 PM Not Available Not Available Not Available gabapenti n 100 mg capsule take 1 by oral route 2 times every day 06/01 completed Prescrib ed Elsewher e: Yes Loca tion: Yakov flores [facility] odify By: suzette peñauntyeimy DateTime : 11/12/20 14 10:45:00 AM Not Available Not Available Not Available ergocalci ferol (vitamin D2) 1,250 mcg (50,000 unit) capsule take 1 capsule by oral route every week 06/01 completed Prescrib ed Elsewher e: Yes Loca tion: Yakov flores [facility] odify By: suzette peñauntyeimy DateTime : 11/12/20 14 10:45:00 AM Not Available Not Available Not Available gemfibroz il (bulk) powder 06/01 completed Prescrib ed Elsewher e: Yes Loca tion: Yakov flores [facility] odify By: suzette Flores ncounter DateTime : 11/12/20 14 10:45:00 AM Not Available Not Available Not Available topiramat e 15 mg sprinkle capsule take 1 capsule by oral route 2 times every day in the morning and evening 06/01 completed Prescrib ed Elsewher e: Yes Loca tion: Yakov flores [facility] odify By: suzette peñauntyeimy DateTime : 11/12/20 14 10:45:00 AM Not Available Not Available Not Available magnesium trisilica te (bulk) powder 08/02 completed Prescrib ed Elsewher e: Yes Loca tion: Yakov flores [facility] odify By: suzette peñauntyeimy DateTime : 06/01/20 15 03:30:00 PM Not Available Not Available Not Available NuvaRing 0.12 mg-0.015 mg/24 hr vaginal insert 1 vaginal ring by vaginal route every month leave in place for 3 weeks, remove for 1 week 03/01 completed Prescrib ed Elsewher e: Yes Loca tion: Yakov flores [facility] odify By: axel Martinoo unter DateTime : 06/20/20 12 01:28:05 PM Not Available Not Available Not Available Benicar HCT 20 mg-12.5 mg tablet take 1 tablet by oral route every day 08/02 completed Prescrib ed Elsewher e: Yes Loca tion: Yakov flores [facility] odify By: suzette peñauntyeimy DateTime : 06/01/20 15 03:30:00 PM Not Available Not Available Not Available Vitamin D3 10 mcg (400 unit) capsule 2014 active Prescrib ed Elsewher e: Yes Loca tion: Yakov flores [facility] odify By: suzette peñauntyeimy DateTime : 06/01/20 15 03:30:00 PM Not Available Not Available Not Available meloxicam 7.5 mg/5 mL oral suspensio n take 5 millilit er by oral route every day 08/02 completed Prescrib ed Elsewher e: Yes Loca tion: Yakov flores [facility] odify By: suzette peñauntyeimy DateTime : 06/01/20 15 03:30:00 PM Not Available Not Available Not Available B Complex 1.7 mg-20 mg-2 mg-1.2 mg/mL sublingua l liquid 08/02 completed Prescrib ed Elsewher e: Yes Loca tion: Yakov flores [facility] odify By: suzette hanks DateTime : 06/01/20 15 03:30:00 PM Not Available Not Available Not Available Vyvanse 50 mg capsule active Not Available Not Available Not Available cyclobenz aprine ER 15 mg capsule,e xtended release 24 hr take 1 capsule by oral route every day 06/01 completed Prescrib ed Elsewher e: Yes Loca tion: Yakov flores [facility] odify By: suzette hanks DateTime : 11/12/20 14 10:45:00 AM Not Available Not Available Not Available Nuvigil 50 mg tablet 06/01 completed Prescrib ed Elsewher e: Yes Loca tion: Yakov flores [facility] odify By: suzette peñauntyeimy DateTime : 11/12/20 14 10:45:00 AM Not Available Not Available Not Available Nucynta 50 mg tablet active Not Available Not Available Not Available Tirosint 13 mcg capsule take 1 capsule by oral route every day 12/02 completed Prescrib ed Elsewher e: Yes Loca tion: Yakov flores [facility] odify By: trenton davies DateTime : 11/12/20 14 10:45:00 AM Not Available Not Available Not Available Butrans 10 mcg/hour transderm al patch apply 1 patch by transder mal route every 7 days 08/02 completed Prescrib gabe [facility] e: Yes Loca tion: [facility] elsa By: suzette peñauntyeimy DateTime : 06/01/20 03:30:00 PM Not Available Not Available Not Available Hysingla ER 60 mg tablet, crush resistant , extended release active Not Available Not Available Not Available Symproic 0.2 mg tablet 08/02 completed Not Available Not Available Not Available Vitals Date Recorded Body height Body mass index (BMI) Body weight Systolic blood pressure Diastolic blood pressure Provider Name and Address Organization Details Last Updated DateTime 08/11/2022 162.56 cm 26.6 kg/m2 94698.54 g 128 mm[Hg] 72 mm[Hg] [facility] 2 12:41:22 Date Recorded Body height Body mass index (BMI) Body weight Systolic blood pressure Diastolic blood pressure Provider Name and Address Organization Details Last Updated DateTime 08/26/2022 162.56 cm 26.6 kg/m2 77141.54 g 129 mm[Hg] 76 mm[Hg] [facility] 2 09:37:12 Date Recorded Body height Body mass index (BMI) Body weight Systolic blood pressure Diastolic blood pressure Provider Name and Address Organization Details Last Updated DateTime 11/29/2022 162.56 cm 27.5 kg/m2 66514.78 g 130 mm[Hg] 74 mm[Hg] Janessa Bolanos [facility] 3 11:35:46 Social History Question Answer Notes LastModified by Organizat ion Details LastModified Time Tobacco Smoking Status Never Smoker [facility] 11/29/2022 11:18:46 Do You Have An Advance Directive? No Information n ot available 08/26/2022 What Is Your Level Of Alcohol Consumption? None Information not available 08/02/2022 Are You Blind Or Do You Have Difficulty Seeing? No Information n ot available 08/02/2022 What Is Your Level Of Caffeine Consumption? Moderate Information not available 08/26/2022 In The 14 Days Before Symptom Onset, Have You Had Close Contact With A Laboratory-confirm ed COVID-19 While That Case Was Ill? No Information n ot available 08/26/2022 In The 14 Days Before Symptom Onset, Have You Had Close Contact With A Person Who Is Under Investigation For COVID-19 While That Person Was Ill? No Information not available 08/26/2022 Have You Been To An Area Known To Be High Risk For COVID-19? No Information not available 08/26/2022 Are You Deaf Or Do You Have Serious Difficulty Hearing? No Information not available 08/02/2022 What Type Of Diet Are You Following? REGULAR Information n ot available 08/02/2022 Are There Any Guns Present In Your Home? No Information not available 08/26/2022 Do You Use Your Seat Belt Or Car Seat Routinely? Yes Information not available 08/26/2022 Do You Have Smoke And Carbon Monoxide Detectors In Your Home? Yes Information not available 08/26/2022 How Much Tobacco Do You Smoke? No Information not available 08/26/2022 Do You Feel Stressed (tense, Restless, Nervous, Or Anxious, Or Unable To Sleep At Night)? [id number] Information not available 08/26/2022 Do You Use Any Illicit Or Recreational Drugs? No Information not available 08/26/2022 Do You Use Sunscreen Routinely? No Information not available 08/26/2022 Have You Used IV Drugs? No Information not available 08/26/2022 Sex: Unknown Functional Status Question Answer Note LastModified by Organizat ion Details LastModified Time Do you have difficulty walking or climbing stairs? No [email or web address] Information not available 11/29/2022 Are you able to walk? YESWOREST Information not available 08/02/2022 Are you able to care for yourself? Yes [email or web address] Information not available 11/29/2022 Do you have difficulty dressing or bathing? No [email or web address] Information not available 11/29/2022 What is your exercise level? None Information not available 08/02/2022 Mental Status None recorded. Family History Nothing Reported. Medical History Condition Response Allergies (Food, seasonal, environmental ) N Other N Breast Cancer N Drug/Latex Allergies/Reactions N Blood Transfusion N Dermatologic Disorders N Lung Disease N Defects or Inherited Disease N Breast Problem N Gestational Diabetes N Hematologic disorders N Anesthesia Complications N History of STI N Deep Vein Thrombosis N Polycystic ovary syndrome N Anxiety Disorder N Autoimmune disease N Arthritis N Infertility N Polyps N Acid Reflux (GERD) N History of abnormal pap N Cancer N Stroke N Varicosities N Neurologic/Epilepsy N Endometriosis N High Cholesterol N Headaches N Fibromyalgia N Kidney Disease N Heart Problems N Kidney or Bladder Problems N Thyroid Problems N GI Problems N Eating Disorder N Anemia N Art (IVF or FET) N Psychiatric Illness N Ovarian Cancer N Diabetes N Pulmonary (TB, Asthma) N Hepatitis/Liver Disease N No Past Medical History N Eczema N Urinary Tract Infection N Abuse/Domestic Violence N Asthma N Trauma/Violence N Depression/ depression N Heart Disease N Pre-Eclampsia N Hypertension N Osteoporosis N Thrombophilias N Gynecological History Statement/Question Response Flow Heavy Date of LMP 07/30/2022 On BCP's at Conception? Y Y Was last menstrual period normal N STIs/STDs N HPV Vaccine N Duration of Flow (days) 18 Current Control Method None Age at First Child 17 Sexually Active? Y Menses Monthly N Date of Last Pap Smear 08/02/2022 Sexual Problems? N LMP Definite Y Obstetrics History GPAL:G 6 P 0 3 2 4 Type Value Induced 1 Spontaneous 1 Premature 3 Living 4 Total 6 Past Encounters Encounter ID Performer Location Encounter Start Date Encounter Closed Date Diagnosis/Indication Diagnosis SNOMED-CT Code Diagnosis ICD10 Code Diagnosis Note [id number] YUE Nielsen [facility] [address] [address] 08/02/2022 10:57:38 08/02/2022 13:52:21 Screening for malignant neoplasm of breast [id number] Z12.39 Abnormal u terine bleeding [id number] 9100 N93.9 Gynecologi c examination [id number] Z01.419 Suggested Calcium with Vitamin D 1200-1500m g daily. Patient advised to get an annual flu shot in the fall and she could obtain at [facility] or [facility] care clinic. Also to obtain TDap vaccinatio n if you have not had one in the last 10 years. Recommend yearly mammograms . Encouraged monthly self breast exams. Encourage safe sexual practices, to use condoms and limit partners if not already in a monogamous relationsh ip. Engage in daily exercise of low impact aerobic exercise 45-60 minutes 4-5 times weekly. Avoid tobacco and illicit drugs as well as using moderation with alcohol intake less than 1-2 8 oz beverages daily. This lifestyle behavior pattern will lead to less health conditions and longer life span. If BMI greater than 25 weight watchers or dietary consult advised. All questions have been answered. Patient appears to understand informatio n, but if you have any questions please call or respond to this email. WWEHx of endometria l ablation in 2013 for AUB. Amenorrhea post ablation, had one episode of spotting 1 year ago, then last month had 2 days of heavier vaginal bleeding.W as told she was postmenopa usal by hormone testing a few years ago She has been having HRT pellets inserted for the last 2 years at outside facility, estrogen and testostero ne pellets, taking oral progestero ne. Started pellets to help with mood symptoms.H x of LEEP in 2005, normal paps since, last pap around 2014Pap done todaySTI testing added to papWe discussed new onset vaginal bleeding. We discussed can have return of menses after ablation, but unsure if this is considered postmenopa usal bleeding at this point. We discussed HRT pellet therapy in relation to new onset bleeding.W e discussed pellet therapy not recommende d by Evita work ordered - however will not give insight into menopausal status given on pelletsPel yara u/s orderedMam mogram order given to patientRTC for pelvic u/s f/u to discuss any further testing needed Time spent in visit is a total of 40 mins with at least 50% of visit consisting of counseling and review of plan of care.BP today 142/70 - no symptoms, encouraged her to f/u with PCP, ED precaution s discussedP atient unable to leave urine sample for UPT today Venereal d isease screening [id number] Z11.3 [id number] [facility] [address] [address] 08/09/2022 11:59:16 08/09/2022 12:44:57 Abnormal uterine bleeding [id number] 9100 N93.9 [id number] YUE Nielsen [facility] [address] [address] 08/11/2022 12:32:12 08/11/2022 14:39:20 Endometrium thickened [id number] R93.89 Hx of endometria l ablation in 2013 for AUB. Amenorrhea post ablation, had one episode of spotting 1 year ago, then last month had 2 days of heavier vaginal bleeding.W as told she was postmenopa usal by hormone testing a few years ago She has been having HRT pellets inserted for the last 2 years at outside facility, estrogen and testostero ne pellets, taking oral progestero ne. Started pellets to help with mood symptoms.H x of LEEP in 2005, normal paps /since, last pap around 2014Pap done at [facility] on 08/02/2022 NILM, HR HPV (-) We discussed pelvic u/s result : thickened endometriu m at 15.3mmReco mmend endometria l biopsy for further evaluation . She declines having this done in the office, states she would not be able to tolerate procedure. She would like to proceed with MD consult for possible hysterosco py D&C instead.MD consult scheduled with Dr. Marcano at [facility] We discussed elevated total testostero ne level of 149 and free testostero ne level of 14.2Elevat ion due to testostero ne pellets. We discussed these levels are not within normal range for a female. We discussed pellet therapy in relation to her thickened endometriu m. We discussed risk of thickened endometriu m and importance of her to f/u for MD consult. Patient agrees. RTC for MD consult Time spent in visit is a total of 25 mins with at least 50% of visit consisting of counseling and review of plan of care. [id number] Zach Marcano MD [facility] [address] [address] 08/26/2022 09:28:55 08/26/2022 16:39:02 Postmenopausal bleeding [id number] N95.0 this patient is a 47-year-ol d female who presents for postmenopa usal bleeding. She had some repetitive episodes of bleeding recently. She was 1 year without any bleeding after her menses stopped she began having menopausal symptoms. She is taking hormone replacemen t therapy. She is doing it in the pellet form. It contains testostero ne estrogen and progestero ne. She needs evaluation of the endometriu m. We spent 40 minutes face-to-fa ce. More than 50% was counseling . Talked about postmenopa usal bleeding. Talked about the menstrual cycle. Talked about hormone replacemen t therapy. Talked about hysterosco py and D&C. Talked about endometria l biopsy. We talked about the risks benefits of endo metre biopsy. We talked about the risks benefits and alternativ es to hysterosco py D&C. She wants to be asleep for the procedure. This is a good idea. She is status post LEEP and likely has a stenotic cervix. Pap smears are painful for this patient. We will proceed with hysterosco py D&C. [id number] Zach Marcano MD [facility] [address] [address] 11/29/2022 11:18:38 11/29/2022 12:20:18 Postmenopausal bleeding [id number] N95.0 27-year-ol d female who presents for follow-up after hysterosco py D& C. All biopsies were benign. She has no complaints from the procedure. Patient is using hormone pellets. This procedure was done for postmenopa usal bleeding. Her doctor also has her taking oral progestero ne. She will continue her hormone therapy. She will follow-up as needed. Health Concerns Section Related Observation LastModified by Organization Detai ls LastModified Time None Recorded Concern Status LastModified by Organization Details LastModified Time None Recorded Advance Directives Directive N: Payers Encounter Date Sequence Insurance Name Policy Number Policy Bush Covered Member ID Bush Member ID Guarantor Name 08/09/2022 1 [employer] [id number] 2 [employer] 08/11/2022 1 [employer] [id number] 2 Mons[employer] [facility] 08/26/2022 1 [facility] Tram [id number] 2 Monserrat Ugalde 11/29/2022 1 [facility] Tram [id number] 2 Monserrat Ugalde Notes Date Note Type Note Provider Name and Address Organization Details Recorded Time 08/11/2022 text/html Patient presents for u/s f/u appointment Hx of endometrial ablation in 2013 for AUB. Amenorrhea post ablation, had one episode of spotting 1 year ago, then last month had 2 days of heavier vaginal bleeding.Was told she was postmenopausal by hormone testing a few years ago She has been having HRT pellets inserted for the last 2 years at outside facility, estrogen and testosterone pellets, taking oral progesterone. Started pellets to help with mood symptoms.Hx of LEEP in 2005, normal paps since, last pap around 2014Pap done at [facility] on 08/02/2022 NILM, HR HPV (-) YUE Nielsen [address], [place], [address], [facility] 08/11/2022 14:02:53 08/26/2022 text/html this patient is a 47-year-old female who presents for postmenopausal bleeding. She had some repetitive episodes of bleeding recently. She was 1 year without any bleeding after her menses stopped she began having menopausal symptoms. She is taking hormone replacement therapy. She is doing it in the pellet form. It contains testosterone estrogen and progesterone. She needs evaluation of the endometrium. We spent 40 minutes [id number]. More than 50% was counseling. Talked about postmenopausal bleeding. Talked about the menstrual cycle. Talked about hormone replacement therapy. Talked about hysteroscopy and D&C. Talked about endometrial biopsy. We talked about the risks benefits of endo metre biopsy. We talked about the risks benefits and alternatives to hysteroscopy D&C. She wants to be asleep for the procedure. This is a good idea. She is status post LEEP and likely has a stenotic cervix. Pap smears are painful for this patient. We will proceed with hysteroscopy D&C. Zach Marcano MD [address], [place], [address], [facility] 08/26/2022 11:43:46 11/29/2022 text/html 27-year-old fembairon moon who presents for follow-up after hysteroscopy D& C. All biopsies were benign. She has no complaints from the procedure. Patient is using hormone pellets. This procedure was done for postmenopausal bleeding. Her doctor also has her taking oral progesterone. She will continue her hormone therapy. She will follow-up as needed. Zach Marcano MD [address], [place], [address], [facility] 11/29/2022 12:10:23 OBGyn Episode Ob Episode Information Episode Created Date Number of Fetuses Patient Bloodtype Patient rh Status Prepregnancy Weight lbs Domestic Partner Domestic Partner Phone Father Name Mechanical Research Engineer Status 08/24/20 22 1 CLOSED Fetus Data First Name Last Name Admitted to NICU Weight (g) Sex Living Outcome Pediatric Complications Fetus ID Race Codes Race Delivery Type F Prem[place] [id number] Vaginal Delivery Manjit Calculation Initial Manjit Date Initial Exam Date Initial Exam Provider Initial Ultrasound Date Last Menstrual Period Date Ultra Sound Weeks Gestation 0 Eighteen To Twenty Week Manjit Update Ultra Sound Date Fundal Height At Umbil Quickening Date Ultra Sound Latest Weeks Gestation Final Manjit Confirmed By Final Manjit Confirmed Date Final Manjit Date Ultra Sound Latest Days Gestation 0 0 Menstrual History Last Menstrual Date Menses Monthly On Bcp Conception Prior Menses Frequency Hcg Plus Date Menarche Onset Age Delivery Information Delivery Date Delivery Type Labor Anesthesia Weeks Gestation Incision Type Labor Labor Length Hrs Delivered By Post Complications Tubal Sterilization Discharge Date Comments 4 36 Discharge Information Feeding Method Contraceptive Method Maternal HG B and HCT Levels Ob Episode Information Episode Created Date Number of Fetuses Patient Bloodtype Patient rh Status Prepregnancy Weight lbs Domestic Partner Domestic Partner Phone Father Name Mechanical Research Engineer Status 08/24/20 22 1 CLOSED Fetus Data First Name Last Name Admitted to NICU Weight (g) Sex Living Outcome Pediatric Complications Fetus ID Race Codes Race Delivery Type F [id number] Vaginal Delivery Manjit Calculation Initial Manjit Date Initial Exam Date Initial Exam Provider Initial Ultrasound Date Last Menstrual Period Date Ultra Sound Weeks Gestation 0 Eighteen To Twenty Week Manjit Update Ultra Sound Date Fundal Height At Umbil Quickening Date Ultra Sound Latest Weeks Gestation Final Manjit Confirmed By Final Manjit Confirmed Date Final Manjit Date Ultra Sound Latest Days Gestation 0 0 Menstrual History Last Menstrual Date Menses Monthly On Bcp Conception Prior Menses Frequency Hcg Plus Date Menarche Onset Age Delivery Information Delivery Date Delivery Type Labor Anesthesia Weeks Gestation Incision Type Labor Labor Length Hrs Delivered By Post Complications Tubal Sterilization Discharge Date Comments 2 Sriram Discharge Information Feeding Method Contraceptive Method Maternal HG B and HCT Levels Ob Episode Information Episode Created Date Number of Fetuses Patient Bloodtype Patient rh Status Prepregnancy Weight lbs Domestic Partner Domestic Partner Phone Father Name Mechanical Research Engineer Status 08/24/20 22 1 CLOSED Fetus Data First Name Last Name Admitted to NICU Weight (g) Sex Living Outcome Pediatric Complications Fetus ID Race Codes Race Delivery Type , Spontane ous [id number] Manjit Calculation Initial Manjit Date Initial Exam Date Initial Exam Provider Initial Ultrasound Date Last Menstrual Period Date Ultra Sound Weeks Gestation 0 Eighteen To Twenty Week Manjit Update Ultra Sound Date Fundal Height At Umbil Quickening Date Ultra Sound Latest Weeks Gestation Final Manjit Confirmed By Final Manjit Confirmed Date Final Manjit Date Ultra Sound Latest Days Gestation 0 0 Menstrual History Last Menstrual Date Menses Monthly On Bcp Conception Prior Menses Frequency Hcg Plus Date Menarche Onset Age Delivery Information Delivery Date Delivery Type Labor Anesthesia Weeks Gestation Incision Type Labor Labor Length Hrs Delivered By Post Complications Tubal Sterilization Discharge Date Comments 3 Discharge Information Feeding Method Contraceptive Method Maternal HG B and HCT Levels Ob Episode Information Episode Created Date Number of Fetuses Patient Bloodtype Patient rh Status Prepregnancy Weight lbs Domestic Partner Domestic Partner Phone Father Name Mechanical Research Engineer Status 08/24/20 22 2 CLOSED Fetus Data First Name Last Name Admitted to NICU Weight (g) Sex Living Outcome Pediatric Complications Fetus ID Race Codes Race Delivery Type F Demise [id number] Vaginal Delivery [place] [id number] Vaginal Delivery Manjit Calculation Initial Manjit Date Initial Exam Date Initial Exam Provider Initial Ultrasound Date Last Menstrual Period Date Ultra Sound Weeks Gestation 0 Eighteen To Twenty Week Manjit Update Ultra Sound Date Fundal Height At Umbil Quickening Date Ultra Sound Latest Weeks Gestation Final Manjit Confirmed By Final Manjit Confirmed Date Final Manjit Date Ultra Sound Latest Days Gestation 0 0 Menstrual History Last Menstrual Date Menses Monthly On Bcp Conception Prior Menses Frequency Hcg Plus Date Menarche Onset Age Delivery Information Delivery Date Delivery Type Labor Anesthesia Weeks Gestation Incision Type Labor Labor Length Hrs Delivered By Post Complications Tubal Sterilization Discharge Date Comments 4 Maria Luisa STILL - 34wk, cord knotted Meche Discharge Information Feeding Method Contraceptive Method Maternal HG B and HCT Levels Ob Episode Information Episode Created Date Number of Fetuses Patient Bloodtype Patient rh Status Prepregnancy Weight lbs Domestic Partner Domestic Partner Phone Father Name Mechanical Research Engineer Status 08/24/20 22 1 CLOSED Fetus Data First Name Last Name Admitted to NICU Weight (g) Sex Living Outcome Pediatric Complications Fetus ID Race Codes Race Delivery Type 2863.07 2704 M Prematur e 61778 Vaginal Delivery Manjit Calculation Initial Manjit Date Initial Exam Date Initial Exam Provider Initial Ultrasound Date Last Menstrual Period Date Ultra Sound Weeks Gestation 0 Eighteen To Twenty Week Manjit Update Ultra Sound Date Fundal Height At Umbil Quickening Date Ultra Sound Latest Weeks Gestation Final Manjit Confirmed By Final Manjit Confirmed Date Final Manjit Date Ultra Sound Latest Days Gestation 0 0 Menstrual History Last Menstrual Date Menses Monthly On Bcp Conception Prior Menses Frequency Hcg Plus Date Menarche Onset Age Delivery Information Delivery Date Delivery Type Labor Anesthesia Weeks Gestation Incision Type Labor Labor Length Hrs Delivered By Post Complications Tubal Sterilization Discharge Date Comments 1 35 Discharge Information Feeding Method Contraceptive Method Maternal HG B and HCT Levels Ob Episode Information Episode Created Date Number of Fetuses Patient Bloodtype Patient rh Status Prepregnancy Weight lbs Domestic Partner Domestic Partner Phone Father Name Mechanical Research Engineer Status 08/24/20 22 1 CLOSED Fetus Data First Name Last Name Admitted to NICU Weight (g) Sex Living Outcome Pediatric Complications Fetus ID Race Codes Race Delivery Type , Induced [id number] Manjit Calculation Initial Manjit Date Initial Exam Date Initial Exam Provider Initial Ultrasound Date Last Menstrual Period Date Ultra Sound Weeks Gestation 0 Eighteen To Twenty Week Manjit Update Ultra Sound Date Fundal Height At Umbil Quickening Date Ultra Sound Latest Weeks Gestation Final Manjit Confirmed By Final Manjit Confirmed Date Final Manjit Date Ultra Sound Latest Days Gestation 0 0 Menstrual History Last Menstrual Date Menses Monthly On Bcp Conception Prior Menses Frequency Hcg Plus Date Menarche Onset Age Delivery Information Delivery Date Delivery Type Labor Anesthesia Weeks Gestation Incision Type Labor Labor Length Hrs Delivered By Post Complications Tubal Sterilization Discharge Date Comments 5 Discharge Information Feeding Method Contraceptive Method Maternal HG B and HCT Levels
--- OUTSIDE RECORDS SUMMARY | 2025-03-11 17:00 | XMS_ITS | Clinical Summary ---
Author Organization [facility] Address [address] [place] [id number] Care Team Providers Care Draw Off Worker Name Role Phone Unavailable Primary Care Provider Unavailabl e Social History Tobacco Use Types Packs/Day Years Used Date Smoking Tobacco: Never Assessed Comments Unknown Sex and Gender Information Value Date Recorded Sex Assigned at Not on file Legal Sex Female 8:08 PM CDT Gender Identity Not on file Sexual Orientation Not on file Plan of Treatment Health Maintenance Due Date Last Done Comments Hepatitis C Virus (HCV) Screening 1973 TdaP Immunization 1973 Hepatitis B Immunization (1 of 3 - 19+ 3-dose series) 1992 Pap Smear 1994 Cervical Cancer Screening (CCS) 2003 HPV/Cotest 2003 Colonoscopy 2018 Colorectal Cancer Screening 2018 Cologuard 2023 Immunochemical Fecal Occult Blood 2023 Mammogram 2023 Pneumococcal Immunization (5 0+ years) (1 of 1 - PCV) 2023 Zoster Immunization (1 of 2) 2023 Influenza Immunization (#1) 2024 SARS-COV-2 Immunization ( - season) 2024 Respiratory Syncytial Virus (RSV) Immunization (Adult) (1 - 1-dose 75+ series) 2048 Meningococcal Immunization (ACWY) Aged Out No longer eligible based on patient's age to complete this topic Pneumococcal Immunization Combined Aged Out No longer eligible based on patient's age to complete this topic Rotavirus Immunization Aged Out No lo nger eligible based on patient's age to complete this topic
--- OUTSIDE RECORDS SUMMARY | 2025-03-11 17:00 | XMS_ITS | Clinical Summary ---
Author Organization [facility] Administrative Offices Address [address] [place] [address] Care Team Providers Care Licensing Services Clerk Name Role Phone Benny Nava DO Primary Care Provider [phone] Allergies No known active allergies Social History Tobacco Use Types Packs/Day Years Used Date Smoking Tobacco: Never Assessed Comments Unknown Sex and Gender Information Value Date Recorded Sex Assigned at Not on file Legal Sex Female 1:08 PM CDT Gender Identity Not on file Sexual Orientation Not on file Last Filed Vital Signs Vital Sign Reading Time Taken Comments Blood Pressure - - Pulse - - Temperature - - Respiratory Rate - - Oxygen Saturation - - Inhaled Oxygen Concentration - - Weight 76.7 kg (169 lb) 06/18/2015 8:37 PM CDT Height - - Body Mass Index - - Plan of Treatment Health Maintenance Due Date Last Done Comments DTAP/TDAP/TD VACCINES (1 - Tdap) 1992 HEPATITIS B VACCINES (1 of 3 - 19+ 3-dose series) 1992 HPV/Cotest (21-29) 1994 PAP SMEAR 1994 CERVICAL CANCER SCREENING 2003 HPV/Cotest (30-65) 2003 PAP SMEAR 2003 BREAST CANCER SCREENING 2013 COLORECTAL SCREENING 2018 Colorectal Cancer Screening 2018 FIT-DNA Q 3 years 2018 FIT/FOBT Q 1 year 2018 Flex Sig/CT Colonography Q 5 years 2018 ZOSTER VACCINE (1 of 2) 2023 INFLUENZA VACCINE (#1) 2024 PNEUMOCOCCAL VACCINE 0-49 YEARS Aged Out No longer eligible based on patient's age to complete this topic Care Teams Licensing Services Clerk Relationship Specialty Start Date End Date Benny Nava DO PCP - General Neurology 06/04/15
--- OUTSIDE RECORDS SUMMARY | 2025-03-11 17:01 | XMS_ITS | Encounter Summary ---
Author Organization [facility] Address [address] [place] [address] Care Team Providers Care Communications Associate Name Role Phone Unavailable Primary Care Provider Unavailabl e Encounter Details Date Type Department Care Team (Late st Contact Info) Description 05/04/2019 Abstract [facility] CONVERSION [address] [place] [address] , Generic Conversion, Social History Tobacco Use Types Packs/Day Years Used Date Smoking Tobacco: Never Assessed Comments Unknown Sex and Gender Information Value Date Recorded Sex Assigned at Female 01/22/2025 2:05 PM JAVA WEB DEVELOPER Legal Sex Female 8:12 PM CDT Gender Identity Not on file Sexual Orientation Not on file documented as of this encounter Plan of Treatment Not on file documented as of this encounter Visit Diagnoses Not on filedocumented in this encounter
--- NOTE | 2025-03-11 17:28 | ED_ITS ---
HPI - Extremity Problem General Chief complaint: Extremity Problem,Nontraumatic Stated complaint: LT Foot Pain Time Seen by Provider: 03/11/25 17:05 Source: patient and RN notes reviewed Mode of arrival: ambulatory Limitations: no limitations History of Present Illness HPI Narrative: 49-year-old female presents [facility] complaining of left foot pain for 2 weeks. Patient denies any obvious injury and states that she believes she injured it when she was working outside in the yard 2 weeks ago. She denies any swelling, deformity, bruising, or redness to her foot. Patient states it hurts to bear weight on her left foot. Patient is able to ambulate. Patient also reports numbness to the top of her foot. She says she has been taking Naprosyn for pain with some relief. Related Data Home Medications ?Medication ?Instructions ?Recorded ?Confirmed ?Last Taken ?Type lamotrigine 150 mg tablet 150 mg PO BID 06/09/21 09/20/23 11/21/22 20:00 History buprenorphine HCl 150 mcg buccal mcg buccal 12/01/23 12/01/23 Unknown History film (Belbuca) dextroamphetamine-amphetamine ER PO 12/01/23 Unknown History 50 mg capsule,3 bead,ext release 24hr levothyroxine 12/01/23 Unknown History naproxen 500 mg tablet mg 12/01/23 Unknown History progesterone micronized 200 mg mg 03/11/25 Unknown History capsule Allergies Allergy/AdvReac Type Severity Reaction Status Date / Time No Known Allergies Allergy Verified 12/01/23 12:48 Review of Systems Review of Systems: CONSTITUTIONAL: Denies fever, chills, or sweats. EYES: Denies visual changes, redness, or discharge. ENT: Denies rhinorrhea, congestion, sore throat, or otalgia. CARDIOVASCULAR: Denies chest pain, palpitations, or edema. RESPIRATORY: Denies cough or dyspnea. GASTROINTESTINAL: Denies abdominal pain, nausea, vomiting, or diarrhea. GENITOURINARY: Denies dysuria or hematuria. SKIN: Denies rash or itching. MUSCULOSKELETAL: Denies back pain, joint pain, or myalgia. Positive for left foot pain. NEUROLOGIC: Denies headache,, or weakness. Positive for left foot numbness PSYCHIATRIC: Denies anxiety or depression. All other systems reviewed are negative, except as documented in HPI. PMFSH Past Medical History Medical History PTSD (post-traumatic stress disorder) MTHFR (methylene THF reductase) deficiency and homocystinuria Depression Anxiety Hypothyroidism Chronic pain Social History Social History Smoking status: Former smoker Tobacco type: cigarettes and e-cigarettes/vaping Smoking end date: 11/27/15 Additional smoking assessment comments: cigarettes 1/2ppd [id number] Living arrangements: with family Gender identity (if verbalized by the patient): Female Spiritual care concerns: No Comments At the time of my signature, I reviewed and agree with the nursing past medical, surgical, social, and family history. There is no relevant family history p ertinent to the patient complaint. Exam Narrative: GENERAL: This is a well-nourished, well-developed adult, in no apparent distress. They are non ill-appearing, nontoxic appearing. HEAD: normocephalic, atraumatic. EYES: Sclera clear/white. Vision is grossly intact. EARS: External ears normal, Hearing grossly intact. NOSE: External nose normal THROAT: Mucous membranes moist, NECK: Normal range of motion CARDIOVASCULAR: Regular rate and rhythm RESPIRATORY: Normal respiratory rate. Respiratory effort nonlabored. No respiratory distress SKIN: warm, Dry, intact with no suspicious lesions or rash, good texture and turgor. NEURO: awake, alert, and oriented to person, place and time. There were no obvious focal neurologic abnormalities. EXTREMITIES: Left foot: No obvious swelling, injury, deformity, redness. Pedal pulse 2 +and palpable. Patient is able to dorsiflex and plantar flex without pain. There is tenderness to palpation to the dorsal surface of the foot. Patient is able to feel the examiner palpate her foot throughout the dorsal surface of her foot without numbness. Patient is able to wiggle her toes. Capillary refills less than 2 seconds. Foster's test is negative BACK: Nontender without deformity. No CVA tenderness. Course Course Level of Care: Express Care Visit Vital Signs Vital signs: Vital Signs Temperature 97.7 F 03/11/25 16:51 Pulse Rate 97 03/11/25 16:51 Respiratory Rate 18 03/11/25 16:51 Blood Pressure 153/84 H 03/11/25 16:51 Pulse Oximetry 100 03/11/25 16:51 Oxygen Delivery Room Air 03/11/25 16:51 Temperature 97.7 F 03/11/25 16:51 Pulse Rate 97 03/11/25 16:51 Respiratory Rate 18 03/11/25 16:51 Blood Pressure 153/84 H 03/11/25 16:51 Pulse Oximetry 100 03/11/25 16:51 Oxygen Delivery Room Air 03/11/25 16:51 Reviewed MDM - Extremity (Nontraumatic) MDM Narrative Medical decision making narrative: X-ray is negative for any acute findings. Jarred wrap applied to left foot. Disc ussed physical exam findings. Advised supportive measures and signs/symptoms to go to the ER. Pt is appropriate for outpt treatment and f/u. Differential Diagnosis Differential diagnosis: Likely other (Foot strain, foot fracture, ankle strain, plantar fasciitis) Imaging Data Radiologist's impression: FINDINGS: BONES: No acute fracture or dislocation. JOINT SPACES: Normal. No tarsal coalition. SOFT TISSUES: Normal. IMPRESSION: No acute osseous abnormality left foot. Critical Care Time Critical Care Time Critical Care Time: No Discharge Plan Discharge Clinical Impression: Foot pain, left Patient Disposition: Home Condition: Stable Instructions: Foot Sprain (ED) Additional Instructions: Rest and elevate the leg; bear weight as tolerated Apply ice 15-20 minute intervals several times a day Keep it wrapped with JARRED Motrin 600mg -800mg every 8 hours, alternate with Tylenol 1000mg every 8 hours as needed Follow up with your primary care provider or a sheriff sergeant as needed in 1-2 weeks Patient Language: Belarusian Prescriptions: No Action lamotrigine 150 mg tablet 150 mg PO BID progesterone micronized 200 mg capsule naproxen 500 mg tablet buprenorphine HCl [Belbuca] 150 mcg film BUCCAL dextroamphetamine-amphetamine 50 mg capsule, ER multiphase 24 hr PO levothyroxine amoxicillin 500 mg tablet 1,000 mg PO DAILY 10 Days Qty: 20 0RF Follow-up/Referrals: Syed Gomez DPM [Physician] - PHYSICIAN,[employer] [Primary Care Provider] - Time of Disposition: 17:34
== END 2025-03-11 17:54 | disposition home or self-care (01) ==
DX: M79.672 Pain in left foot (principal); Z87.891 Personal history of nicotine dependence; E03.9 Hypothyroidism, unspecified; F32.A Depression, unspecified; E72.12 Methylenetetrahydrofolate reductase deficiency
CPT/HCPCS: 73630; 99213; G0463

== ENCOUNTER 2025-06-23 12:48 | Outpatient (CLI) | payer OTHER, SELFPAY ==
--- NOTE | ~2025-06-23 | XR_ITS ---
XR lumbar spine min 4V 06/23/2025 13:43 Indication: Lumbar radicular pain Procedure: 5 views lumbar spine Comparison: No prior studies for comparison. Findings: There is disc narrowing at L4-5 with grade 1 degenerative spondylolisthesis secondary to fa cet hypertrophy. There is lumbarization of S1. No acute fracture or traumatic malalignment. There is facet hypertrophy at L4-5 and L5-S1. Impression: 1: Moderate spondylosis at L4-5 with grade 1 spondylolisthesis. Reviewed, dictated and finalized at location A. Impression: 1: Moderate spondylosis at L4-5 with grade 1 spondylolisthesis.
--- NOTE | ~2025-06-23 | MR_ITS ---
MRI of the cervical spine Clinical History: Radiculopathy Technique: Axial T2-weighted and gradient images, and sagittal T1-weighted, T2-weighted, and STIR elizabeth ges were acquired. Findings: No fracture or subluxation seen, but there is reversal normal cervical lordosis. No suspici ous bone marrow signal abnormality seen. At C2-C3, there is no disc bulge or herniation. No spinal canal stenosis, cord compression, or neural foraminal narrowing. At C3-C4, there is no significant disc bulge or herniation. No spinal canal stenosis, cord compressio n, or neural foraminal narrowing. At C4-C5, there is degenerative disc narrowing with minimal disc bulge. No spinal canal stenosis, cor d compression, or right neural foraminal narrowing. Possible minimal left neural foraminal narrowing. At C5-C6, there are degenerative distended with minimal disc osteophyte complex. There is mild canal stenosis without eveline cord compression. No definite neural foraminal narrowing. At C6-C7, there is no disc bulge or herniation. No spinal canal stenosis, cord compression, or neural foraminal narrowing. No abnormal signal seen in the spinal cord. Paravertebral soft tissues are unremarkable. Impression: Mild degenerative spondylosis overall, as detailed above. Reversal of the normal cervical lordosis. Reviewed, dictated and finalized at [facility]. Impression: Mild degenerative spondylosis overall, as detailed above. Reversal of the normal cervical lordosis.
--- NOTE | ~2025-06-23 | MR_ITS ---
MRI of the lumbar spine Clinical History: Radiculopathy Technique: Axial T2-weighted images, and sagittal T1-weighted, T2-weighted, and T2 fat-sat images wer e acquired. Findings: No fracture seen. There is 3 mm anterolisthesis of L3 over L4. No suspicious bone marrow si gnal abnormality seen. At L1-L2, there is no disc bulge or herniation. There is mild to moderate facet hypertrophy. No spina l canal stenosis or neural foraminal narrowing. At L2-L3, there is minimal disc bulge with mild facet hypertrophy. No spinal canal stenosis or neural foraminal narrowing. At L3-L4, there is degenerative distended. There is diffuse disc bulge with severe facet arthropathy. There is moderate to advanced spinal canal stenosis/thecal sac compression. There is mild left neura l foraminal narrowing. Right neural foramen preserved. At L4-L5, there is mild central disc protrusion with moderate to advanced facet arthropathy. No centr al canal stenosis. There is minimal right neural foraminal narrowing. Left neural foramen preserved. At L5-S1, there is no disc bulge or herniation. No spinal canal stenosis or neural foraminal narrowin g. Paravertebral soft tissues are unremarkable. IMPRESSION: Moderate degenerative spondylosis at L3-L4, as detailed above. Mild degenerative changes otherwise, as detailed above. Reviewed, dictated and finalized at [facility].
--- NOTE | ~2025-06-23 | XR_ITS ---
XR cervical spine 4-5V 06/23/2025 13:44 Indication: Radiculopathy Procedure: 5 views cervical spine Comparison: No prior studies for comparison. Findings: Straightening of cervical lordosis. There is degenerative anterolisthesis at C3-4 and retro listhesis at C5-6. No alteration of alignment with flexion/extension. There is mild multilevel uncina te and facet hypertrophy. Lung apices are normal. Odontoid process is normal. Lateral masses normally aligned. Impression: 1: Moderate cervical spondylosis. Reviewed, dictated and finalized at location A. Impression: 1: Moderate cervical spondylosis.
== END 2025-06-23 12:49 | disposition home or self-care (01) ==
LOC: GOSHIMG 12:49
PROVIDERS: PCP Physician Assistant; Visit Provider Physician Assistant
DX: M47.26 Other spondylosis with radiculopathy, lumbar region (principal); M47.22 Other spondylosis with radiculopathy, cervical region
CPT/HCPCS: 72050; 72110; 72141; 72148